=== PATIENT | male | born 1975 | race Caucasian/White ===

== ENCOUNTER 2017-10-16 16:20 | Emergency (ER) | payer SELFPAY ==
[~2017-10-16] VITALS: Ht 185.4 cm; Wt 99.8 kg
[2017-10-16] MEDS ORDERED: CAND4TAB PO (16:35)
--- NOTE | 2017-10-16 17:09 | NUR ---
Patient discharged to home in stable conditon. Written and verbal after care instructions given. Patient verbalizes understanding of instructions.
== END 2017-10-16 17:10 | disposition home or self-care (01) ==
LOC: ER 16:21
DX: F41.9 Anxiety disorder, unspecified (principal); F17.210 Nicotine dependence, cigarettes, uncomplicated; Z79.899 Other long term (current) drug therapy
CPT/HCPCS: 71045; 99284; A4663